=== PATIENT | female | born 2005 | race African-American/Black ===

== ENCOUNTER 2024-09-27 09:59 | Observation (INO) | payer MEDICAID, OTHER ==
[~2024-09-27] VITALS: Ht 152.4 cm; Wt 63.0 kg
[2024-09-27 10:04] VITALS: BP 101/69; PULSE 97; RESP 16; TEMP 97.5; O2SAT 98
--- NOTE | 2024-09-27 10:04 | ED.PDOC ---
COMMUNITY OUTREACH MANAGER HPI Comments 19 year old female presents to the ED with a chief complaint of abdominal pain onset 3 days. Patient is currently 32 weeks , OBGYN is in [place], [place]. Patient came to visit sister, began experiencing abdominal pain, tightness sensation for the past 3 days, worsen today. Denies any PMHx as well as nausea, vomiting, diarrhea, chest pain, shortness of breath, fever, chills. No other symptoms or modifying factors present at this time. Time Seen by MD: 10:00 Reviewed Notes: Medications, Allergies Information Source: Patient Mode of Arrival: Ambulatory Timing: Days Prehospital treatment: None Severity: Moderate Vaginal Discharge: None Vaginal Lesions: None Vaginal Mass: None Sexual Activity: Last Consensual Bouton: Unknown Control: None History of: Current Associated Signs and Symptoms: Abdominal Pain Past Medical History PAST MEDICAL HISTORY: Denies Surgical History: Denies all surgeries REFRIGERATION PLANT CORK INSULATOR History: No Pertinent REFRIGERATION PLANT CORK INSULATOR History Family History Family History: Reviewed,noncontributory to illness Social History Smoker: Non-Smoker Alcohol: Denies ETOH Use Drugs: Denies Drug Use Lives In: Home Constitutional: denies: chills, diaphoresis, fatigue, fever, malaise, sweats, weakness, others EENTM: denies: blurred vision, double vision, ear bleeding, ear discharge, ear drainage, ear pain, ear ringing, eye pain, eye redness, hearing loss, mouth pain, mouth swelling, nasal discharge, nose bleeding, nose congestion, nose pain, photophobia, tearing, throat pain, throat swelling, voice changes, others Respiratory: denies: cough, hemoptysis, orthopnea, SOB at rest, shortness of breath, SOB with excertion, stridor, wheezing, others Cardiovascular: denies: chest pain, dizzy spells, diaphoresis, Dyspnea on exertion, edema, irregular heart beat, left arm pain, lightheadedness, palpitations, PND, syncope, others Gastrointestinal: reports: abdominal pain; denies: abdomen distended, blood streaked bowels, constipated, diarrhea, dysphagia, difficulty swallowing, hematemesis, melena, nausea, poor appetite, poor fluid intake, rectal bleeding, rectal pain, vomiting, others Genitourinary: denies: abnormal vagina bleeding, burning, dyspareunia, dysuria, flank pain, frequency, hematuria, incontinence, pain, , vagina discharge, urgency, others Neurological: denies: dizziness, fainting, headache, left sided numbness, left sided weakness, numbness, paresthesia, pre-existing deficit, right sided numbness, right sided weakness, seizure, speech problems, tingling, tremors, weakness, others Musculoskeletal: denies: back pain, gout, joint pain, joint swelling, muscle pain, muscle stiffness, neck pain, others Integumetry: denies: bruises, change in color, change in hair/nails, dryness, laceration, lesions, lumps, rash, wounds, others Allergic/Immunocompromised: denies: Difficulty Healing, Frequent Infections, Hives, Itching, others Hematologic/Lymphatic: denies: anemia, blood clots, easy bleeding, easy bruising, swollen glands, others Endocrine: denies: excessive hunger, excessive sweating, excessive thirst, excessive urination, flushing, intolerance to cold, intolerance to heat, unexplained weight gain, unexplained weight loss, others Psychiatric: denies: anxiety, bipolar disorder, depression, hopeless, panic disorder, schizophrenia, sleepless, suicidal, others All Other Systems: Reviewed and Negative Physical Exam General Appearance: No Apparent Distress HEENT: Normal ENT Inspection, Pharynx Normal, TMs Normal Neck: Full Range of Motion, Non-Tender, Normal, Normal Inspection Respiratory: Chest Non-Tender, Lungs Clear, No Accessory Muscle Use, No Respiratory Distress, Normal Breath Sounds Cardiovascular: No Edema, No JVD, No Murmur, No Gallop, Normal Peripheral Pulses, Regular Rate/Rhythm Breast Exam: Deferred Gastrointestinal: Non Tender, No Pulsatile Mass, Normal Bowel Sounds, Other (Gravid uterus) Genitalia: Deferred Pelvic: Deferred Rectal: Deferred Extremities: No calf tenderness, Normal capillary refill, Normal inspection, Normal range of motion, Non-tender, No pedal edema Musculoskeletal : Apperance: Normal Neurologic: Alert, wet pan mixer II-XII nml as Tested, No Motor Deficits, Normal Affect, Normal Mood, No Sensory Deficits Cerebellar Function: Normal Reflexes: Normal Skin: Dry, Normal Color, Warm Lymphatic: No Adenopathy Was a procedure done? Was a procedure done?: No Differential Diagnosis (REFRIG[employer]ATION [employer] CORK INSULATOR) Vaginal Bleeding: - Complete, - Incomplete X-Ray, Labs, Meds, VS The patient was being discharged to labor and delivery At this time the patient has been cleared from the emergency department's. Time of 1ST Reevaluation: 10:30 Reevaluation 1ST: Unchanged Patient Education/Counseling: Diagnosis, Treatment, Prognosis Family Education/Counseling: Diagnosis, Treatment, Prognosis Departure 1 Departure Time of Disposition: 10:04 Impression: Primary Impression: Abdominal pain in Qualified Codes: O26.893 - Other specified related conditions, third trimester; R10.9 - Unspecified abdominal pain Disposition: 01 HOME / SELF CARE / HOMELESS Condition: Fair Discharged With: Self Critical Care Note Critical Care Time?: No Stability Stability form required: No Heart Score Heart Score: Heart Score Response (Comments) Value History N/A 0 EKG N/A 0 Age N/A 0 Risk Factors N/A 0 Troponin N/A 0 Total 0 I personally scribed for ONI RODRIGUEZ MD ([email or web address]) on 09/27/24 at 10:04. Electronically submitted by Penny Hall ([email or web address]). ONI RODRIGUEZ MD Sep 27, 2024 10:04
[2024-09-27] MEDS ORDERED: LACTATED RINGER'S 1,000 ML IV ONE (12:00)
[2024-09-27] MEDS: BETAMETHASONE ACET (30mg/5ml) 5ml Vial 6mg/ml IM ONE (12:37)
[2024-09-27] MEDS: TERBUTALINE SULFATE 1 MG/ML 1ML VIAL SC SCH (12:41)
--- NOTE | 2024-09-27 13:03 | DVH ---
Procedure: US OB ULTRASOUND COMP GTR 14 WKS 09/27/2024 12:15 PM HISTORY: labor COMPARISON: None TECHNIQUE: Sonogram of the gravid uterus was performed. FINDINGS: Single living intrauterine gestation. Presentation: Cephalic Placenta: Anterior heart rate: 131 bpm IDALIA: 9 cm Maternal cervix: Closed, 2.9 cm in length in the transabdominal study The following measurements were obtained: Biparietal diameter: 8.1 cm corresponding to 32 weeks and 5 days at 50th percentile Head Circumference: 29 cm corresponding to 32 weeks and 0 day , at 8th percentile Abdominal Circumference: 26.7 cm corresponding to 30 weeks and 5 days , at 10th percentile Femoral Length: 5.7 cm corresponding to 30 weeks and 1 day, 3rd percentile Average Ultrasound Age: 31 weeks and 3 days Estimated Date of Delivery by US: 11/26/2024 Estimated Weight: 1646 g corresponding to 6th percentile based on LMP dating IMPRESSION: 1. Single currently living intrauterine gestation, as described above. 2. Small for gestational age with weight corresponding to less than 10th percentile.
[2024-09-27] MEDS: NIFEdipine 10 MG CAP PO ONE (13:39)
[2024-09-27] MEDS ORDERED: NIFE10CA52 PO (14:41)
--- NOTE | 2024-09-27 22:27 | DVHDS2 ---
Physician Discharge Progress N Final Diagnosis: PTL Operations or Procedures: Operations or Procedures S: 19yo IUP@32wks presents to OB triage from ED with c/o abdominal pain from [facility] for the past 4 days. Denies LOF/VB/DING/vision changes/RUQ pain. Endorses +FM. Denies UTI or vaginitis s/sx. Reports she has not drank a lot of water today due to pain. PNC in [place] at [facility], complicated by anemia. She is currently visiting her sister in the [place] today. She will be going back to [place] tomorrow 09/28/24. O: VSS NST reactive abdomen soft between [facility], pt does not tolerate abdominal palpation and reports pain with EFM adjustment too negative CVA tenderness bilaterally Terbutaline SQ x2 given Procardia 10mg PO once given PO hydration and 1L LR IV bolus given Betamethasone IM first dose given A: 19yo IUP@32wks PTL P: D/C home Rx sent for procardia 10mg PO Q6hrs per Dr. Kelsey Cole consulted, agrees with POC. f/u with [facility] OB triage tmrw 09/28/24 for second dose of betamethasone (24 hour after today's dose) since pt will be back home in [facility] then. kick counts and Preeclampsia warning signs reviewed. PTL precautions given and when to return to the hospital. Other Interventions Other Interventions [place] [address] Ph: [phone] DIAGNOSTIC IMAGING Diagnostic Imaging Report : [id number] Signed PATIENT: SHAWN DEUTSCH ACCT: [id number] UNIT: [id number] : 2005 LOC: LD ROOM / BED: TRIAGE1 / A AGE / SEX: 19 / F ADM STATUS: ADM IN SERVICE 1159 ORDERING PHYSICIAN: DENVER SAMUEL CNM PROCEDURE(s): OBUS - OB ULTRASOUND COMP GTR 14 WKS REASON: labor ORDER NUMBER(s): [id number], ACCESSION NUMBER(s): [id number] Procedure: US OB ULTRASOUND COMP GTR 14 WKS 09/27/2024 12:15 PM HISTORY: labor COMPARISON: None TECHNIQUE: Sonogram of the gravid uterus was performed. FINDINGS: Single living intrauterine gestation. Presentation: Cephalic Placenta: Anterior heart rate: 131 bpm IDALIA: 9 cm Maternal cervix: Closed, 2.9 cm in length in the transabdominal study The following measurements were obtained: Biparietal diameter: 8.1 cm corresponding to 32 weeks and 5 days at 50th perc entile Head Circumference: 29 cm corresponding to 32 weeks and 0 day , at 8th percentile Abdominal Circumference: 26.7 cm corresponding to 30 weeks and 5 days , at 10th percentile Femoral Length: 5.7 cm corresponding to 30 weeks and 1 day, 3rd percentile Average Ultrasound Age: 31 weeks and 3 days Estimated Date of Delivery by US: 11/26/2024 Estimated Weight: 1646 g corresponding to 6th percentile based on LMP dating IMPRESSION: 1. Single currently living intrauterine gestation, as described above. 2. Small for gestational age with weight corresponding to less than 10th percentile. ATED BY: ROSA ISELA MARTIN MD DICTATED DATE/TIME: 09/27/24 1301 SIGNED BY: ROSA ISELA MARTIN MD SIGNED DATE/TIME: 09/27/24 1301 CC: Condition on Discharge: Stable Disposition: Home Discharge Instructions: Diet: Regular Activity: See Comment Activity comment: pelvic rest Medications: see med list Follow Up Care: Specialist: f/u with [facility] OB triage tmrw 09/28/24 for second dose of betamethasone since pt will be back home in [facility] then. Discharge Statement: "Patient was advised to return to the ER or call 911 if any headaches, dizziness, shortness of breath, chest pain, abdominal pain, bleeding, fevers, or worsening of medical condition. Patient was counseled about treatment plan, medications, possible side effects, patientverbalized understanding. All questions were answered to the best of my ability. This discharge took greater then 30 minutes in planning, reviewing documentation, counseling the patient, and discussing with other team members." Visit Coding OBGYN Date of Service: Sep 27, 2024 Billing Provider: DENVER SAMUEL CNM PREFORMING MACHINE OPERATOR Common Visit Codes: 70283-OPIZZYK OBS CARE (HIGH) PREFORMING MACHINE OPERATOR Procedure Codes: 20872-55- NON-STRESS TEST DENVER SAMUEL [facility] Sep 27, 2024 22:27
== END 2024-09-27 15:27 | disposition home or self-care (01) ==
LOC: ER 09:59 → LDRP 10:13 → UNDOADMOB 10:13 → LDRP 10:27
PROVIDERS: ADMIT Obstetrics & Gynecology; ATTEND Obstetrics & Gynecology
DX: O60.03 Preterm labor without delivery, third trimester (principal); O99.013 Anemia complicating pregnancy, third trimester; D64.9 Anemia, unspecified; O99.113 Other diseases of the blood and blood-forming organs and certain disorders involving the immune mechanism complicating pregnancy, third trimester; D84.9 Immunodeficiency, unspecified; Z98.890 Other specified postprocedural states; Z79.899 Other long term (current) drug therapy; Z3A.32 32 weeks gestation of pregnancy
CPT/HCPCS: 59025; 76805; 81002; 96372; 99284; G0378; J0702; J3105